=== PATIENT | female | born 1970 ===

== ENCOUNTER → 2021-02-27 | Day surgery (SDC) | payer OTHER ==
[~2021-02-27] VITALS: Ht 162.6 cm; Wt 108.9 kg
[2021-02-27 09:27] LABS: BASOPHIL 0.4 % (0-2); EOSINOPHIL 5.4 % (0-5); HCT 38.5 % (37.0-47.0); HGB 12.6 g/dl (12.5-16.0); LYMPHOCYTE 31.8 % (15-48); MCH 30.1 pg (25.0-31.0); MCHC 32.7 g/dL (32.0-36.0); MCV 92.1 fL (78.0-100.0); MONOCYTE 7.5 % (0-12); NEUTROPHIL 54.6 % (41-80); NRBC 0; PLT 269 K/uL (150-400); RBC 4.18 M/uL (4.20-5.40); RDW 12.8 % (11.5-14.0); WBC 6.8 K/uL (4.0-10.5)
== END | disposition home or self-care (01) ==
LOC: FAS 08:26
PROVIDERS: Oral & Maxillofacial Surgery
DX: K02.9 Dental caries, unspecified (principal); K04.7 Periapical abscess without sinus
CPT/HCPCS: D7140; D7210; 36415; 71045; 85025; 93005; J1100; J2250; J2405; J2704; J3010; J7120